=== PATIENT | female | born 1970 | race Caucasian/White ===

== ENCOUNTER 2022-06-14 00:08 | Observation (INO) | payer OTHER ==
[2022-06-14 00:24] VITALS: BMI 47.5
[2022-06-14] MEDS ORDERED: ONDANSETRON 4 MG/2 ML VIAL IVPB ONE (00:41)
[2022-06-14] MEDS ORDERED: ONDANSETRON 4 MG/2 ML VIAL ONE (00:53)
[2022-06-14 01:14] LABS: BASO % 0.7 % (0-2.0); EOS % 2.2 % (0-4.5); HEMATOCRIT 39.6 % (32.4-45.2); HEMOGLOBIN 13.2 GM/dL (10.7-15.3); LYMPH % 23.2 % (8-40); MCH 28.5 pg (25.7-33.7); MCHC 33.3 g/dl (32.0-36.0); MEAN CELL VOLUME 85.6 fl (80-96); MEAN PLT VOLUME 11.1 fl (7.5-11.1); MONO % 5.8 % (3.8-10.2); NEUT % 68.1 % (42.8-82.8); PLATELET COUNT 201 10^3/uL (134-434); RBC 4.63 M/mm3 (3.60-5.2); RDW 15.4 % (11.6-15.6); WHITE BLOOD COUNT 12.3 K/mm3 (4.0-10.0)
[2022-06-14 01:26] LABS: CALCIUM 8.8 mg/dL (8.5-10.1)
[2022-06-14 01:27] LABS: ALBUMIN 3.3 g/dl (3.4-5.0); BLOOD UREA NITROGEN 18.3 mg/dL (7-18); MAGNESIUM 1.8 mg/dL (1.8-2.4)
[2022-06-14 01:30] LABS: CREATININE 1.1 mg/dL (0.55-1.3)
[2022-06-14 01:31] LABS: BILIRUBIN,TOTAL 0.4 mg/dL (0.2-1); TOT PROT 6.8 g/dl (6.4-8.2)
[2022-06-14] MEDS ORDERED: OXYMETAZOLINE 0.05% NASAL SOLUTION 15 ML BOTTLE NS ONE (01:31)
[2022-06-14] MEDS ORDERED: LORazepam 2 MG TABLET PO ONE (01:37)
[2022-06-14] MEDS ORDERED: LORazepam 1 MG TABLET ONE (01:39)
[2022-06-14] MEDS ORDERED: amLODIPine BESYLATE 10 MG TABLET (FP) PO ONE (02:26)
[2022-06-14] MEDS ORDERED: amLODIPine BESYLATE 10 MG TABLET (FP) ONE (02:40)
[2022-06-14] MEDS ORDERED: LABETALOL HCL 5 MG/1 ML (100MG/20 ML VIAL) IVPUSH ONE ×2 (04:23→05:00)
[2022-06-14] MEDS ORDERED: LABETALOL HCL 20 MG/4 ML VIAL ONE ×2 (04:24→05:04)
[2022-06-14] MEDS ORDERED: LOSARTAN POTASSIUM 50 MG TABLET PO SCH (06:03)
[2022-06-14] MEDS ORDERED: LOSARTAN POTASSIUM 50 MG TABLET ONE (06:45)
[2022-06-14] MEDS ORDERED: HYDROCHLOROTHIAZIDE 25 MG TABLET (FP) ONE ×2 (06:45→09:44)
[2022-06-14] MEDS ORDERED: LABETALOL HCL 100 MG TABLET (FP) ONE ×2 (06:45→12:06)
[2022-06-14] MEDS: HYDROCHLOROTHIAZIDE 25 MG TABLET (FP) PO SCH ×2 (06:48→09:43)
[2022-06-14] MEDS: LABETALOL HCL 200 MG TABLET (FP) PO SCH ×2 (06:48→12:02)
[2022-06-14] MEDS ORDERED: hydrALAZINE HCL 20 MG/ML VIAL IVPUSH PRN (07:01)
[2022-06-14] MEDS: INSULIN SLIDING SCALE (NOVOLOG) 1 VIAL SQ SCH ×2 (09:22→12:38)
[2022-06-14 09:51] LABS: ALBUMIN 3.4 g/dl (3.4-5.0); BLOOD UREA NITROGEN 19.8 mg/dL (7-18); CALCIUM 8.8 mg/dL (8.5-10.1); MAGNESIUM 1.8 mg/dL (1.8-2.4)
[2022-06-14 09:54] LABS: PHOSPHOROUS 3.3 mg/dL (2.5-4.9)
[2022-06-14 09:56] LABS: BILIRUBIN,TOTAL 0.3 mg/dL (0.2-1); TOT PROT 6.5 g/dl (6.4-8.2)
[2022-06-14 12:27] VITALS: TEMP 97.9
[2022-06-14 14:31] VITALS: BP 156/96; PULSE 77; RESP 14
== END 2022-06-14 14:35 | disposition home or self-care (01) ==
LOC: JER 00:08 → JERBED 04:37
PROVIDERS: ADMIT Internal Medicine; ATTEND Internal Medicine
PROC: 3E033GC Introduction of Other Therapeutic Substance into Peripheral Vein, Percutaneous Approach (ICD-10-PCS; principal; 2022-06-14)
PROC: 3E033GC Introduction of Other Therapeutic Substance into Peripheral Vein, Percutaneous Approach (ICD-10-PCS; 2022-06-14)
DX: R04.0 Epistaxis (principal); I11.9 Hypertensive heart disease without heart failure; E11.9 Type 2 diabetes mellitus without complications; I16.0 Hypertensive urgency; E66.01 Morbid (severe) obesity due to excess calories; Z68.42 Body mass index [BMI] 45.0-49.9, adult; I25.10 Atherosclerotic heart disease of native coronary artery without angina pectoris; F41.9 Anxiety disorder, unspecified; F17.210 Nicotine dependence, cigarettes, uncomplicated
CPT/HCPCS: 0241U-QW; 36415; 80053; 82962; 83036; 83690; 83735; 84100; 84484; 85025; 86900; 93005; 93010; 96374; 96375; 96376; 99285-25; G0378